=== PATIENT | male | born 1965 | race Caucasian/White ===

== ENCOUNTER 2024-04-04 05:14 | Emergency (ER) | payer OTHER ==
[~2024-04-04] VITALS: Ht 177.8 cm; Wt 81.6 kg
[2024-04-04] MEDS ORDERED: cloNIDine HCL 0.2 MG TABLET PO STA (06:01)
[2024-04-04 06:22] LABS: HEMOGLOBIN 15.9 g/dL (13-16.00); MEAN CELL VOLUME 103.9 fL (80.0-100.00); MEAN CORPUSCULAR HEMOGLOBIN 36.8 pg (27.00-32.0); MEAN CORPUSCULAR HGB CONC 35.5 g/dl (32.0-36.0); PLATELET COUNT 201 K/uL (150-450); RED BLOOD COUNT 4.33 M/uL (4.00-6.00); RED CELL DISTRIBUTION WIDTH 15.6 % (11.5-14.5)
[2024-04-04 08:21] LABS: ALBUMIN 3.8 gm/dL (3.4-5.0); BILIRUBIN TOTAL 3.96 mg/dL (0.3-1.2); CALCIUM 9.1 mg/dL (8.5-10.1); CREATININE SERUM 1.33 mg/dL (0.70-1.30); GFR 55.03; POTASSIUM 3.18 mEq/L (3.5-5.1); TOTAL PROTEIN 6.8 gm/dL (6.4-8.2)
[2024-04-04] MEDS ORDERED: COZAAR25 MG PO (10:30)
== END 2024-04-04 10:57 | disposition home or self-care (01) ==
LOC: EDSEX 05:14 → ER 05:14
DX: I10 Essential (primary) hypertension (principal)

== ENCOUNTER 2024-07-10 07:30 | Outpatient (CLI) | payer OTHER ==
[~2024-07-10 07:30] MED LIST: COZAAR25 MG PO
== END 2024-07-10 11:51 | disposition home or self-care (01) ==
LOC: SONOGRAMA 07:30
PROVIDERS: ATTEND Internal Medicine
DX: R94.5 Abnormal results of liver function studies (principal)

== ENCOUNTER 2024-07-30 07:27 | Outpatient (CLI) | payer OTHER | END 2024-07-30 07:29 | disposition home or self-care (01) | LOC: NUCLEAR 07:27 | PROVIDERS: ATTEND Internal Medicine | DX: I87.2 Venous insufficiency (chronic) (peripheral) (principal) ==

== ENCOUNTER 2024-07-31 08:52 | Outpatient (CLI) | payer OTHER | END 2024-07-31 08:53 | disposition home or self-care (01) | LOC: NUCLEAR 08:52 | PROVIDERS: ATTEND Internal Medicine | DX: I73.9 Peripheral vascular disease, unspecified (principal) ==

== ENCOUNTER 2024-08-11 08:16 | Outpatient (CLI) | payer OTHER | END 2024-08-11 08:24 | disposition home or self-care (01) | LOC: MRI 08:16 | PROVIDERS: ATTEND Internal Medicine | DX: M54.42 Lumbago with sciatica, left side (principal); M54.41 Lumbago with sciatica, right side | CPT/HCPCS: 72148 ==